=== PATIENT | female | born 1940 | race Caucasian/White ===

== ENCOUNTER 2024-12-05 07:48 | Emergency (ER) | payer MEDICARE, SELFPAY ==
[2024-12-05 07:54] VITALS: BP 130/67; PULSE 71; TEMP 36.4; O2SAT 95; BMI 23.3
[2024-12-05] MEDS: MORPHINE SULFATE 2 MG/ML SYRINGE IV (08:42)
[2024-12-05] MEDS: 0.9 % SODIUM CHLORIDE 1,000 ML 1000 ML IV (08:43)
--- NOTE | 2024-12-05 08:54 | ECG_ITS ---
[facility] Test Date: 2024-12-05 Pat Name: WINNIE DON Department: Room: - Gender: Female Catalog Specialist: : [id number] Requested By: [id number] Order Number: [id number] Reading MD: TARA FERREIRA M.D. Measurements Intervals [place] Rate: 71 P: 270 LA: 224 QRS: 32 QRSD: 94 T: 45 QT: 406 QTc: 428 Interpretive Statements [id number] Electronic atrial pacemaker Abnormal ECG Compared to ECG 10/04/2019 12:02:10 Junctional rhythm no longer present Electronic atrial pacemaker is now present Electronically Signed On 12-05-2024 15:16:15 EDT by TARA FERREIRA M.D.
--- NOTE | 2024-12-05 08:55 | ED_ITS ---
HPI HPI - General Adult General Chief complaint: Fall Stated complaint: FALL Time Seen by Provider: 12/05/24 08:02 Source: patient Mode of arrival: ambulance History of Present Illness HPI narrative: Patient is a very pleasant 83-year-old female who is complaining of upper thoracic pain and left hip pain. Patient tripped over a rug yesterday. This was a mechanical fall. Patient states a rug has been not laying flat for quite some time, and she had tripped on the rug. Patient was at home by herself. Nephew at bedside. Patient uses a cane at home to help walk. Patient is on a baby aspirin only. Patient takes no other blood thinners. Patient stated she had to top left part of her head, she has no scalp hematoma, no headache, no pain. No neck pain. Patient said most of the fall was on her left hip. Patient has not injured her left hip before. She fell yesterday afternoon, she was scooting on the floor to get around yesterday afternoon, was finally able to get into bed around 330 afternoon yesterday. Patient laid in bed until this morning. Patient could not get out of bed and bear weight. However after she fell yesterday, she was walking around into the garage, taken her cat outside, a nd she felt okay after she fell and she was walking on the hip. Patient is wondering if she overdid it is not having more muscle pain. Patient has no short leg, no internal/external rotation. Patient did not have anything for pain today. Patient took 2 baby aspirin yesterday. Patient has no other acute complaints. All systems are negative except as noted/marked. All systems reviewed and oth erwise negative. Nephew is at bedside. Nurses note and vital signs reviewed and patient is not hypoxic. General: The patient appears well and in no apparent distress. Patient is resting comfortably on cart. Patient is not toxic, lethargic, or listless Skin: Warm, dry, no pallor noted. There is no rash noted. No petechiae, purpura. Head: Normocephalic, atraumatic; no scalp hematoma. No midline or paracervical tenderness palpation. Forage motion of cervical spine no difficulty. Full range of motion of cervical spine with no pain. Eye: Normal conjunctiva, no drainage, EOMI. PERRL Ears, Nose, Mouth, and Throat: oral mucosa is slightly dry. Nares patent. Mouth without vesicles. Cardiovascular: Regular Rate and Rhythm, no murmur, gallop, rub Respiratory: Patient is in no distress, no accessory muscle use, lungs are clear to auscultation, no wheezing, rales or rhonchi Back: Patient has midline T2-T8 mild to moderate tenderness to palpation. Patient has no parathoracic soft tissue tenderness to palpation. No midline or paralumbar tenderness to palpation. No rash, ecchymosis, abrasion, laceration noted. The rest of the back is non-tender, no CVA tenderness bilaterally to percussion. No CT LS midline pain GI: no tenderness to palpation, no masses appreciated. No rebound, guarding, or rigidity noted. No distention Musculoskeletal: Patient has full range of motion of all of the extremities. Patient has minimal pain with internal/external rotation of left hip when the left hip and leg is extended. Patient has mild pain to the left outer hip over the greater trochanter when she has flexion to the left hip. With internal/external rotation in a flexed hip she has mild to moderate pain to the left hip. Patient has no pelvic left ASIS, pelvic brim or left PSIS pain. No pain to left knee, ankle or foot. No other acute complaints., no motor, sensory, or focal neurological deficits Neurological: A&O x4, normal speech Psychiatric: Cooperative Related Data Home Medications ?Medication ?Instructions ?Recorded ?Confirmed amlodipine 5 mg tablet mg 12/05/24 bisoprolol fumarate 5 mg tablet mg 12/05/24 levothyroxine 50 mcg tablet mcg 12/05/24 levothyroxine 75 mcg tablet mcg 12/05/24 Previous Rx's ?Medication ?Instructions ?Recorded methocarbamol 500 mg tablet 500 mg PO Q8H PRN muscle pain #10 12/05/24 tabs tramadol 50 mg tablet 50 mg PO Q8H PRN pain #14 tabs 12/05/24 Allergies Allergy/AdvReac Type Severity Reaction Status Date / Time metoprolol Allergy Mild Vomiting Verified 12/05/24 07:53 Opioid HPI Opioid Management Most Recent Opioid Data: Last Pain Scale 7 12/05/24 08:42 12/05/24 Last ED Pain Assessment 12/05/24 08:05 Last MAR Pain Assessment 12/05/24 08:42 PFSH PFSH Social History Little interest or pleasure in doing things: not at all Feeling down, depressed, or hopeless: not at all Exam Constitutional Vital Signs, click to edit/add: Last Vital Signs Temp 97.6 F 12/05/24 07:54 Pulse 71 12/05/24 07:54 Resp 20 12/05/24 07:54 BP 130/67 12/05/24 07:54 Pulse Ox 95 12/05/24 07:54 O2 Del Method Room Air 12/05/24 07:54 Course Vital Signs Vital signs: Vital Signs Temperature 97.6 F 12/05/24 07:54 Pulse Rate 71 12/05/24 07:54 Respiratory Rate 20 12/05/24 07:54 Blood Pressure 130/67 12/05/24 07:54 Pulse Oximetry 95 12/05/24 07:54 Oxygen Delivery Method Room Air 12/05/24 07:54 Temperature 97.6 F 12/05/24 07:54 Pulse Rate 71 12/05/24 07:54 Respiratory Rate 20 12/05/24 07:54 Blood Pressure 130/67 12/05/24 07:54 Pulse Oximetry 95 12/05/24 07:54 Oxygen Delivery Method Room Air 12/05/24 07:54 Medical Decision Making [facility] Narrative Medical decision making narrative: patient seen and examined: Clinical presentation and history is concerning for thoracic compression fracture, left hip/pelvic fracture, closed head injury Differential diagnosis includes but is not limited to: Closed head injury, intracranial hemorrhage, hip fracture, pelvic fracture, thoracic fracture, electrolyte abnormality, dehydration Diagnostics and management: Patient will have laboratory studies Relevant laboratory interpretation: Patient has white blood cell count 11.8, patient BUN is 21, creatinine 1.18. CK2 71, glucose 129. Radiological studies: Please see the formal radiological report. CT of the head, thoracic spine, hip/pelvis showed no acute findings. Patient does have a noted compression fracture to T12, age-indeterminate. Patient has no pain to T12. Patient's pain is to her upper thoracic spine. Patient is unaware of previous thoracic fracture. Reevaluation: Patient feels better after IV fluids. Patient was able ambulate with a walker and support her weight. Patient feels better and is happy is no fracture. She has no pain over T12. Shared decision making: I discussed with the patient the necessary laboratory findings and radiological findings. Social barriers to healthcare: There are no food insecurities, there is no issue with transportation, there are no insurance barriers. Disposition: I discussed with the patient results of the CT test. A copy of the CT was given to her. Patient will follow-up with PCP. Patient was given a prescription for a rollator with a seat. Patient was given education on continuing ice, education was done at bedside as well. Patient was given prescriptions for tramadol and Robaxin. patient wants to go home. No question at discharge. Nephew, to pick her up. Lab Data Labs: Lab Results 12/05/24 Range/Units 08:30 WBC 11.8 H (4.0-11.0) 10^3/uL RBC 4.23 (4.20-5.40) 10^6/uL Hgb 12.7 (12.0-16.0) g/dL Hct 38.1 (36.0-48.0) % MCV 90.1 (81.0-99.0) fL MCH 30.0 (26.7-34.0) pg MCHC 33.3 (29.9-35.2) g/dL RDW 14.2 (11.0-15.0) % Plt Count 198 (150-450) 10^3/uL MPV 10.7 (9.5-13.5) fL Neut % (Auto) [place] Hand Lymph % (Auto) [place] % (Auto) [place] Hand Eos % (Auto) [place] Baso % (Auto) [place] Neut # (Auto) [place] Lymph # (Auto) [place] Hand [place] # (Auto) [place] Eos # (Auto) [place] Baso # (Auto) [place] Hand Abs Immat Gran (auto) [place] Hand Seg Neuts % (Manual) 94.0 H (43.0-75.0) Lymphocytes % (Manual) 2.0 L (20.5-60.0) % Monocytes % (Manual) 4.0 (1.7-12.0) % Eosinophils % (Manual) 0.0 L (0.9-7.0) % Basophils % (Manual) 0.0 L (0.2-2.0) % Imm/Tot Granulo (auto) [place] Neutrophils # (Manual) 11.09 H (1.4-6.5) 10^3/uL Lymphocytes # (Manual) 0.23 L (1.20-3.80) 10^3/uL Monocytes # (Manual) 0.47 (0.30-0.80) 10^3/uL Eosinophils # (Manual) 0.00 (0.00-0.70) 10^3/uL Basophils # (Manual) 0.00 (0.00-0.10) 10^3/uL Toxic Granulation 1+ Sodium 141 (136-145) mmol/L Potassium 3.9 (3.5-5.1) mmol/L Chloride 105 (98-107) mmol/L Carbon Dioxide 26.9 (21.0-32.0) mmol/L Anion Gap 13.0 BUN 21.0 H (7.0-18.0) mg/dL Creatinine 1.18 H (0.55-1.02) mg/dL Est GFR ( Amer) 53 L (>=60 mL/min/1.73m^2) Est GFR (Non-Af Amer) 44 L (>=60 mL/min/1.73m^2) BUN/Creatinine Ratio 17.8 Glucose 129 H (74-106) mg/dL Calcium 8.9 (8.5-10.1) mg/dL Total Creatine Kinase 271 H (26-192) U/L ECG Data Attestation: I personally reviewed and interpreted this ECG as follows: (EKG interpretation. Atrial paced rhythm at 71 beats a minute. Normal axis deviation. Artifact noted. QTc of 428. ) Discharge Plan Discharge Chief Complaint: Fall Clinical Impression: Accident due to mechanical fall without injury, CHI (closed head injury), Acute midline thoracic back pain, Acute pain of left hip Patient Disposition: Home, Self-Care Time of Disposition Decision: 11:11 Condition: Fair Prescriptions / Home Meds: New methocarbamol 500 mg tablet 500 mg PO Q8H PRN (Reason: muscle pain) Qty: 10 0RF tramadol 50 mg tablet 50 mg PO Q8H PRN (Reason: pain) Qty: 14 0RF No Action amlodipine 5 mg tablet levothyroxine 75 mcg tablet bisoprolol fumarate 5 mg tablet levothyroxine 50 mcg tablet Print Language: Upper Sorbian Instructions: Fall Prevention for Older Adults (ED), Head Injury (ED), Thoracic Pain (ED), Hip Pain (ED) Additional Instructions: You have been given IV fluids. You were given a copy of your CAT scan report of your head, thoracic spine, and hip/pelvis. You were prescribed a rollator Use the pain medication and muscle relaxer if needed. Most importantly use to ice 20 minutes on, 20 minutes off, do not use heat. Follow-up with PCP for physical therapy if needed. You may be stiff and sore for the next 7 to 10 days. Referrals: TIMOTHY PERRIN [Primary Care Provider] - 1 week
[2024-12-05 08:59] LABS: Hematocrit 38.1 % (36.0-48.0); Hemoglobin 12.7 g/dL (12.0-16.0); Mean Corpuscular HGB Conc 33.3 g/dL (29.9-35.2); Mean Corpuscular Volume 90.1 fL (81.0-99.0); Mean Platelet Volume 10.7 fL (9.5-13.5); Platelet Count 198 10^3/uL (150-450); Red Blood Count 4.23 10^6/uL (4.20-5.40); Red Cell Distribution Width 14.2 % (11.0-15.0); White Blood Count 11.8 10^3/uL (4.0-11.0)
[2024-12-05 09:17] LABS: Lymphocytes Absolute Manual 0.23 10^3/uL (1.20-3.80); Monocytes Absolute Manual 0.47 10^3/uL (0.30-0.80); Segmented Neut Absolute Manual 11.09 10^3/uL (1.4-6.5)
[2024-12-05 09:18] LABS: Toxic Granulation 1+
[2024-12-05 09:21] LABS: BUN Creatinine Ratio 17.8; Calcium 8.9 mg/dL (8.5-10.1); Carbon Dioxide 26.9 mmol/L (21.0-32.0); Chloride 105 mmol/L (98-107); Creatine Kinase 271 U/L (26-192); Estimated GFR (African America 53 (>=60 mL/min/1.73m^2); Estimated GFR (Non-African Ame 44 (>=60 mL/min/1.73m^2); Glucose 129 mg/dL (74-106); Potassium 3.9 mmol/L (3.5-5.1); Sodium 141 mmol/L (136-145)
[2024-12-05] MEDS: ONDANSETRON PF 4 MG/2 ML VIAL IV (09:49)
== END 2024-12-05 11:50 | disposition home or self-care (01) ==
PROVIDERS: Emergency Provider Emergency Medicine; PCP Family Medicine
DX: S09.8XXA Other specified injuries of head, initial encounter (principal); M54.6 Pain in thoracic spine; M25.552 Pain in left hip; Z79.82 Long term (current) use of aspirin; W01.0XXA Fall on same level from slipping, tripping and stumbling without subsequent striking against object, initial encounter
CPT/HCPCS: 36415; 70450; 72128; 72192; 80048; 82550; 85007; 85025; 85027; 93005; 96374; 96375; 99285; J2270; J2405